=== PATIENT | female | born 1995 | race Caucasian/White ===

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

== ENCOUNTER 2018-02-22 19:02 | Emergency (ER) | payer MEDICAID ==
[~2018-02-22] VITALS: Ht 157.5 cm; Wt 53.5 kg
[2018-02-22 20:25] VITALS: BP 118/79
== END 2018-02-22 20:25 | disposition home or self-care (01) ==
LOC: ED 19:02
DX: R59.0 Localized enlarged lymph nodes (principal)
CPT/HCPCS: J1885